=== PATIENT | male | born 1960 ===

== ENCOUNTER 2020-10-16 20:26 | Inpatient (IN) ==
[2020-10-16] MEDS ORDERED: SODIUM CHLORIDE 0.9% 1,000 ML IV STA (20:50)
[2020-10-16 21:07] LABS: Basophils % 0.1 % (0.0-0.8); Hematocrit 29.6 VOL% (42.0-52.0); Hemoglobin 9.5 GM/DL (14.0-18.0); Immature Granulocytes % 0.6 %; Immature Granulocytes Absolute 0.05 #; Lymphocytes # 0.2 10*3/uL (1.4-4.0); Lymphocytes % 2.3 % (21.2-54.2); Mean Corpuscular HGB Conc 32.1 GM/DL (32-36); Mean Corpuscular Volume 86.3 FL (87-102); Mean Platelet Volume 12.1 FL (9.6-12.0); Monocytes % 7.8 % (1.7-12.7); Neutrophils % 89.2 % (38.7-73.9); Platelet Count 122 T/CUMM (130-400); Red Blood Count 3.43 MC/CUMM (3.8-5.5); Red Cell Distribution Width 16.5 % (9.3-17.3); White Blood Count 8.4 T/CUMM (4-12)
[2020-10-16 21:11] LABS: Allen Test Positive
[2020-10-16 21:15] LABS: ABG Base Excess -12.5 MMOL/L (-2.5-2.5); ABG HCO3 14.5 MMOL/L (20-26); ABG Oxygen Saturation 87.3 % (95-100); ABG PO2 59.7 MM HG (80-95); ABG TCO2 12.2 MMOL/L (23-27)
[2020-10-16 21:16] LABS: INR 1.3; PT Patient Result 13.8 SECS (9.8-11.9)
[2020-10-16] MEDS ORDERED: CEFEPIME 1,000 MG in SODIUM CHLORIDE 0.9% 100 ML IV STA (21:25)
[2020-10-16 21:31] LABS: Albumin 2.5 G/DL (3.4-5.0); Bilirubin,Total 0.5 MG/DL (0.2-1.0); Calcium 7.3 MG/DL (8.5-10.1); Osmolality,Calculated 304.7 MOS/KG (273-304); Total Protein 5.6 G/DL (6.4-8.3)
[2020-10-16] MEDS ORDERED: SODIUM BICARBONATE 50 MEQ/50 ML VIAL IV STA (21:44)
[2020-10-16] MEDS ORDERED: SODIUM BICARBONATE 50 MEQ/50 ML SYRINGE IV ONE (21:47)
[2020-10-16 21:52] LABS: Lymphocytes 1 % (20-55); Segmented Neutrophils 97 % (50-85); Total Cells Counted 100
[2020-10-16] MEDS ORDERED: ONDANSETRON 4 MG/2 ML VIAL IV PRN (23:47)
[2020-10-16] MEDS ORDERED: diphenhydrAMINE CAP 25 MG CAPSULE PO PRN (23:47)
[2020-10-16] MEDS ORDERED: GLUCAGON 1 MG VIAL IM PRN (23:47)
[2020-10-16] MEDS ORDERED: NICOTINE 21 MG/24 HR PATCH TRANSDERM PRN (23:47)
[2020-10-16] MEDS ORDERED: MORPHINE 4 MG/1 ML VIAL IV PRN (23:47)
[2020-10-16] MEDS ORDERED: DEXTROSE 50% 25 GM/50 ML VIAL IV PRN (23:47)
[2020-10-16] MEDS ORDERED: hydrALAZINE 20 MG/1 ML VIAL IV PRN (23:47)
[2020-10-16] MEDS ORDERED: ACETAMINOPHEN 325 MG TABLET PO PRN (23:47)
[2020-10-16] MEDS ORDERED: guaiFENesin/DM ER 600-30 MG TABLET PO PRN (23:47)
[2020-10-17] MEDS ORDERED: ALBUTEROL/IPRATROPIUM 3 ML NEB RESP TX SCH (01:00)
[2020-10-17 05:29] LABS: Basophils % 0.1 % (0.0-0.8); Eosinophils % 0.1 % (0.00-10.9); Hematocrit 27.3 VOL% (42.0-52.0); Hemoglobin 8.7 GM/DL (14.0-18.0); Immature Granulocytes % 0.6 %; Immature Granulocytes Absolute 0.05 #; Lymphocytes # 0.2 10*3/uL (1.4-4.0); Lymphocytes % 2.4 % (21.2-54.2); Mean Corpuscular HGB Conc 31.9 GM/DL (32-36); Mean Corpuscular Volume 85.6 FL (87-102); Mean Platelet Volume 12.1 FL (9.6-12.0); Monocytes % 6.6 % (1.7-12.7); Neutrophils % 90.2 % (38.7-73.9); Platelet Count 124 T/CUMM (130-400); Red Blood Count 3.19 MC/CUMM (3.8-5.5); Red Cell Distribution Width 16.4 % (9.3-17.3)
[2020-10-17 05:51] LABS: Albumin 2.3 G/DL (3.4-5.0); Bilirubin,Total 0.5 MG/DL (0.2-1.0); Calcium 7.6 MG/DL (8.5-10.1); Ferritin 498.5 ng/ml (26-388); Total Protein 5.6 G/DL (6.4-8.3)
[2020-10-17 06:07] LABS: Lymphocytes 4 % (20-55); Platelet Estimate Normal; Segmented Neutrophils 91 % (50-85); Total Cells Counted 100
[2020-10-17 06:08] LABS: Hypochromasia Slight
[2020-10-17] MEDS: INSULIN REGULAR 100 UNIT/ML SUBCUT SCH ×4 (07:30→20:37)
[2020-10-17] MEDS: ALBUTEROL INHALER 18 GM INH SCH ×2 (08:01→14:44)
[2020-10-17] MEDS ORDERED: FAMOTIDINE 20 MG TABLET PO SCH (09:00)
[2020-10-17] MEDS: ASCORBIC ACID 500 MG TABLET PO SCH ×2 (11:01→20:36)
[2020-10-17] MEDS: CHOLECALCIFEROL 1,000 UNIT TABLET PO SCH (11:01)
[2020-10-17] MEDS: DEXAMETHASONE 4 MG/1 ML VIAL IV SCH (11:01)
[2020-10-17] MEDS: CEFEPIME 1,000 MG in SODIUM CHLORIDE 0.9% 100 ML IV SCH ×2 (11:02→20:28)
[2020-10-17] MEDS: ZINC GLUCONATE 50 MG TABLET PO SCH (11:02)
[2020-10-17] MEDS: AZITHROMYCIN 250 MG TABLET PO SCH (11:02)
[2020-10-17] MEDS: ALBUTEROL 2.5 MG/3 ML NEB RESP TX SCH (19:19)
[2020-10-18 05:40] LABS: Hematocrit 29.7 VOL% (42.0-52.0); Hemoglobin 9.4 GM/DL (14.0-18.0); Immature Granulocytes % 0.5 %; Immature Granulocytes Absolute 0.03 #; Lymphocytes # 0.1 10*3/uL (1.4-4.0); Lymphocytes % 1.4 % (21.2-54.2); Mean Corpuscular HGB Conc 31.6 GM/DL (32-36); Mean Corpuscular Volume 86.8 FL (87-102); Mean Platelet Volume 11.7 FL (9.6-12.0); Neutrophils % 95.1 % (38.7-73.9); Platelet Count 133 T/CUMM (130-400); Red Blood Count 3.42 MC/CUMM (3.8-5.5); Red Cell Distribution Width 16.6 % (9.3-17.3); White Blood Count 6.3 T/CUMM (4-12)
[2020-10-18 05:57] LABS: Calcium 8.6 MG/DL (8.5-10.1); Osmolality,Calculated 312.4 MOS/KG (273-304)
[2020-10-18 06:28] LABS: Band Neutrophils 1 % (0-10); Lymphocytes 1 % (20-55); Nucleated Red Blood Cells 1 (0-5); Segmented Neutrophils 94 % (50-85); Total Cells Counted 100
[2020-10-18 06:29] LABS: Hypochromasia 2+; Platelet Estimate Decreased
[2020-10-18] MEDS: ALBUTEROL 2.5 MG/3 ML NEB RESP TX SCH ×4 (07:25→19:36)
[2020-10-18] MEDS: CEFEPIME 1,000 MG in SODIUM CHLORIDE 0.9% 100 ML IV SCH ×2 (08:41→21:21)
[2020-10-18] MEDS: INSULIN REGULAR 100 UNIT/ML SUBCUT SCH ×4 (08:41→21:21)
[2020-10-18] MEDS: DEXAMETHASONE 4 MG/1 ML VIAL IV SCH (08:41)
[2020-10-18] MEDS: AZITHROMYCIN 250 MG TABLET PO SCH (08:42)
[2020-10-18] MEDS: CHOLECALCIFEROL 1,000 UNIT TABLET PO SCH (08:42)
[2020-10-18] MEDS: ASCORBIC ACID 500 MG TABLET PO SCH ×2 (08:42→21:15)
[2020-10-18] MEDS: FAMOTIDINE 20 MG TABLET PO SCH (08:43)
[2020-10-18] MEDS: ZINC GLUCONATE 50 MG TABLET PO SCH (08:43)
[2020-10-18] MEDS ORDERED: ENOXAPARIN 40 MG/0.4 ML SYRINGE SUBCUT SCH (21:00)
[2020-10-19] MEDS: ALBUTEROL 2.5 MG/3 ML NEB RESP TX SCH ×3 (01:50→13:16)
[2020-10-19] MEDS: AZITHROMYCIN 250 MG TABLET PO SCH (08:30)
[2020-10-19] MEDS: CHOLECALCIFEROL 1,000 UNIT TABLET PO SCH (08:30)
[2020-10-19] MEDS: FAMOTIDINE 20 MG TABLET PO SCH (08:30)
[2020-10-19] MEDS: CEFEPIME 1,000 MG in SODIUM CHLORIDE 0.9% 100 ML IV SCH (08:31)
[2020-10-19] MEDS: ZINC GLUCONATE 50 MG TABLET PO SCH (08:31)
[2020-10-19] MEDS: ASCORBIC ACID 500 MG TABLET PO SCH (08:31)
[2020-10-19] MEDS: DEXAMETHASONE 4 MG/1 ML VIAL IV SCH (08:31)
[2020-10-19] MEDS: INSULIN REGULAR 100 UNIT/ML SUBCUT SCH ×2 (08:32→13:06)
[2020-10-19 12:03] VITALS: BP 180/80
== END 2020-10-19 15:28 | disposition home or self-care (01) | DRG 177 ==
LOC: EDUNIT# → EDBD → N.EDINP 20:26 → N.ED 20:26 → N.EDINP 10-17 01:34 → N.2E 10-17 01:58 → SUATTDRO 10-17 14:30 → N.5E 10-17 15:50
PROVIDERS: ADMIT Internal Medicine; ATTEND Emergency Medicine

== ENCOUNTER 2021-10-17 14:05 | Observation (INO) ==
[2021-10-17] MEDS ORDERED: fentaNYL 100 MCG/2 ML VIAL IV STA ×2 (14:35→15:59)
[2021-10-17] MEDS ORDERED: ONDANSETRON 4 MG/2 ML VIAL IV STA (14:35)
[2021-10-17 15:18] LABS: Basophils % 0.1 % (0.0-0.8); Eosinophils # 0.1 10*3/uL (0.0-0.87); Hematocrit 40.7 VOL% (42.0-52.0); Hemoglobin 13.1 GM/DL (14.0-18.0); Immature Granulocytes % 0.8 %; Lymphocytes # 0.8 10*3/uL (1.4-4.0); Lymphocytes % 6.3 % (21.2-54.2); Mean Corpuscular HGB Conc 32.2 GM/DL (32-36); Mean Corpuscular Volume 102.5 FL (87-102); Mean Platelet Volume 10.6 FL (9.6-12.0); Monocytes % 4.4 % (1.7-12.7); Neutrophils % 87.4 % (38.7-73.9); Platelet Count 116 T/CUMM (130-400); Red Blood Count 3.97 MC/CUMM (3.8-5.5); Red Cell Distribution Width 14.6 % (9.3-17.3); White Blood Count 12.6 T/CUMM (4-12)
[2021-10-17 15:51] LABS: Bilirubin,Total 0.9 MG/DL (0.20-1.00); Calcium 8.6 MG/DL (8.5-10.1); Osmolality,Calculated 290.3 MOS/KG (273-304); Potassium 3.7 MMOL/L (3.5-5.1); Total Protein 6.5 G/DL (6.4-8.2)
[2021-10-17] MEDS ORDERED: GLUCAGON 1 MG VIAL IM PRN (16:06)
[2021-10-17] MEDS ORDERED: ONDANSETRON 4 MG/2 ML VIAL IV PRN (16:06)
[2021-10-17] MEDS ORDERED: DEXTROSE 50% 25 GM/50 ML SYRINGE IV PRN (16:06)
[2021-10-17] MEDS ORDERED: DEXTROSE 50% 25 GM/50 ML VIAL IV PRN (16:06)
[2021-10-17] MEDS ORDERED: MORPHINE 2 MG/1 ML SYRINGE IV PRN (16:11)
[2021-10-17] MEDS: INSULIN REGULAR 100 UNIT/ML SUBCUT SCH ×2 (17:40→21:55)
[2021-10-17] MEDS ORDERED: ENOXAPARIN 30 MG/0.3 ML SYRINGE SUBCUT SCH (21:00)
[2021-10-18 05:56] LABS: Basophils % 0.1 % (0.0-0.8); Eosinophils # 0.3 10*3/uL (0.0-0.87); Eosinophils % 2.4 % (0.00-10.9); Hematocrit 37.6 VOL% (42.0-52.0); Hemoglobin 12.4 GM/DL (14.0-18.0); Immature Granulocytes % 0.7 %; Immature Granulocytes Absolute 0.08 #; Lymphocytes # 0.9 10*3/uL (1.4-4.0); Mean Corpuscular Volume 101.3 FL (87-102); Mean Platelet Volume 10.7 FL (9.6-12.0); Monocytes % 7.4 % (1.7-12.7); Neutrophils % 81.4 % (38.7-73.9); Red Blood Count 3.71 MC/CUMM (3.8-5.5); Red Cell Distribution Width 14.7 % (9.3-17.3)
[2021-10-18 05:57] LABS: Albumin 2.7 G/DL (3.4-5.0); Calcium 8.4 MG/DL (8.5-10.1); Osmolality,Calculated 286.7 MOS/KG (273-304); Platelet Count 96 T/CUMM (130-400); Potassium 4.9 MMOL/L (3.5-5.1); Risk Ratio 2.46; Total Protein 6.1 G/DL (6.4-8.2); VLDL Cholesterol 17.6 MG/DL
[2021-10-18 08:43] LABS: Ferritin 671.2 ng/mL (26-388)
[2021-10-18 09:00] LABS: PT Patient Result 10.9 SECS (10.5-12.0)
[2021-10-18] MEDS ORDERED: PANTOPRAZOLE 40 MG TABLET PO SCH (09:00)
[2021-10-18] MEDS ORDERED: ASPIRIN EC 81 MG TABLET PO SCH (09:26)
[2021-10-18] MEDS: INSULIN REGULAR 100 UNIT/ML SUBCUT SCH ×3 (09:35→15:47)
[2021-10-18] MEDS ORDERED: REGADENOSON 0.4 MG/5 ML SYRINGE IV ONE (13:17)
[2021-10-18] MEDS: SEVELAMER CARBONATE 800 MG TABLET PO SCH ×2 (14:32→17:24)
[2021-10-18] MEDS ORDERED: GLUCAGON 1 MG VIAL IM PRN (15:59)
[2021-10-18] MEDS ORDERED: DEXTROSE 10% 250 ML BAG IV PRN (16:01)
[2021-10-18 16:28] VITALS: BP 104/32
[2021-10-18] MEDS ORDERED: FUROSEMIDE 40 MG TABLET PO SCH (21:00)
[2021-10-19] MEDS ORDERED: CHOLECALCIFEROL 1,000 UNIT TABLET PO SCH (09:00)
[2021-10-19] MEDS ORDERED: calcitrioL 0.25 MCG CAPSULE PO SCH (09:00)
[2021-10-19] MEDS ORDERED: predniSONE 5 MG TABLET PO SCH (09:00)
[2021-10-19] MEDS ORDERED: MULTIVITAMIN (BEROCCA) TABLET PO SCH (09:00)
== END 2021-10-18 17:59 | disposition home health service (06) ==
LOC: EDBD → SUATTDRO → EDUNIT# → N.EDINP 14:05 → N.ED 14:05 → N.TELES 19:28
PROVIDERS: ADMIT Internal Medicine; ATTEND Internal Medicine